=== PATIENT | male | born 1990 | race Caucasian/White ===

== ENCOUNTER → 2016-10-01 | Outpatient (REF) | LOC: WSOH 08:08 | DX: Z02.4 Encounter for examination for driving license (principal) ==

== ENCOUNTER 2016-10-09 12:48 | Outpatient (RCR) | payer OTHER | END 2017-01-07 | LOC: WSOH | DX: S83.422A Sprain of lateral collateral ligament of left knee, initial encounter (principal); X50.1XXA Overexertion from prolonged static or awkward postures, initial encounter; Y99.0 Civilian activity done for income or pay ==